=== PATIENT | male | born 1980 | race Caucasian/White ===

== ENCOUNTER 2019-01-20 15:01 | Inpatient (IN) | payer SELFPAY ==
[2019-01-20] MEDS ORDERED: Sodium Chloride 0.9% 1,000 ML IV ONE (15:11)
--- NOTE | 2019-01-20 15:17 | EDM.PDOC ---
ED HPI GENERAL MEDICAL PROBLEM - General Chief Complaint: Upper Extremity Injury/Pain Stated Complaint: HAND INFECTION Time Seen by Provider: 01/20/19 15:02 Source of Information: Reports: Patient History Limitations: Reports: No Limitations - History of Present Illness INITIAL COMMENTS - FREE TEXT/NARRATIVE: HISTORY AND PHYSICAL: History of present illness: Patient is a 38-year-old male presents to the ED today via EMS for concern of a left hand infection. Patient states he is homeless and was at the residential when the police had suggested he come in for medical treatment. Patient states he has a history of schizophrenia and his just recently and he is in the process of trying to get home back to [place] with his dog. Patient states over the past week he has been biting the nails on his left hand and even took a knife to scrape off some of the cuticle. Patient states she had noticed the infection starting to spread up his arm that he was more concerned with his 's passing that he was ignoring his symptoms. Patient states he's had some nausea but denies any other symptoms. Patient denies fever, chills, chest pain, shortness of breath, or cough. Denies headache, neck stiff ness, change in vision, syncope, or near syncope. Denies vomiting, abdominal pain, diarrhea, constipation, or dysuria. Has not noted any blood in urine or stool. Patient has been eating and drinking appropriately. Review of systems: As per history of present illness and below otherwise all systems reviewed and negative. Past medical history: As per history of present illness and as reviewed below otherwise noncontributory. Surgical history: As per history of present illness and as reviewed below otherwise noncontributory. Social history: See social history for further information Family history: As per history of present illness and as reviewed below otherwise noncontributory. Physical exam: General: Patient is alert, oriented, and in no acute distress. Patient laying comfortably on exam table. HEENT: Atraumatic, normocephalic, pupils equal and reactive bilaterally, negative for conjunctival pallor or scleral icterus, mucous membranes moist, TMs normal bilaterally, throat clear, neck supple, nontender, trachea midline. No drooling or trismus noted. No meningeal signs. No hot potato voice noted. Lungs: Clear to auscultation, breath sounds equal bilaterally, chest nontender. Heart: S1S2, regular rate and rhythm without overt murmur Abdomen: Thin, Soft, nondistended, nontender. Negative for masses or hepatosplenomegaly. Negative for costovertebral tenderness. Pelvis: Stable nontender. Genitourinary: Deferred. Rectal: Deferred. Skin: Intact, warm, dry. No lesions or rashes noted. Extremities: Negative for cords or calf pain. Neurovascular unremarkable. Left hand and forearm are erythematous/edematous and warm to touch from the distal fingertips to the mid radial shaft. Range of motion of the left wrist is limited due to edema and pain. Patient does have full range of motion of all digits. There is evidence of biting of the nails, more pronounced on digits 3 and 4 with surrounding erythema and crusting of the nail. I did use a surgical pen to outline the area of cellulitis. Radial pulses grossly intact and capillary refill less than 2 seconds. Neuro: Awake, alert, oriented. Cranial nerves II through XII unremarkable. Cerebellum unremarkable. Motor and sensory unremarkable throughout. Exam nonfocal. Notes: Dr. Spear directly involved in patient care. Dr. Coburn consulted on patient and will admit to inpatient. Voices understanding and is agreeable to plan of care. Denies any further questions or concerns at this time. Diagnostics: CBC, CMP, UA, Lactate, Blood Cultures x 2, Hand XR, Forearm XR Therapeutics: NS, Vancomycin, Clindamycin Impression: Left hand / forearm cellulitis Plan: 1. Admit to inpatient to Dr. Coburn. Definitive disposition and diagnosis as appropriate pending reevaluation and review of above. Left Hand Pain Score (Numeric/FACES): 5 - Related Data Allergies Allergy/AdvReac Type Severity Reaction Status Date / Time No Known Allergies Allergy Verified 01/20/19 15:10 Home Meds: Home Meds . [No Known Home Meds] 01/20/19 [History] Review of Systems - Review of Systems Review Of Systems: ROS reveals no pertinent complaints other than HPI. ED EXAM, GENERAL - Physical Exam Exam: See Below (see dictation) Course - Vital Signs Last Recorded V/S: Last Vital Signs Temp 36.6 C 01/20/19 15:10 Pulse 91 01/20/19 15:10 Resp 16 01/20/19 15:10 BP 144/109 H 01/20/19 15:10 Pulse Ox 98 01/20/19 15:10 - Orders/Labs/Meds Orders: Active Orders 24 hr Category Date Time Status Admission Status [Patient Status] [ADT] Stat ADT 01/20/19 16:20 Ordered CULTURE BLOOD [BC] Stat Lab 01/20/19 15:15 Received CULTURE BLOOD [BC] Stat Lab 01/20/19 15:22 Received UA RFX SHRUTHI AND CULT IF INDIC [URIN] Stat Lab 01/20/19 15:11 Ordered Sodium Chloride 0.9% [Normal Saline] 1,000 ml Med 01/20/19 15:11 Active IV STAT Vancomycin [Vancocin] 1 gm Med 01/20/19 15:31 Active Sodium Chloride 0.9% [Normal Saline] 250 ml IV ONETIME Blood Culture x2 Reflex Set [OM.PC] Stat Oth 01/20/19 15:10 Ordered Medication Orders Sodium Chloride (Normal Saline) 1,000 mls @ 125 mls/hr IV STAT ONE Stop: 01/20/19 23:10 Last Admin: 01/20/19 15:21 Dose: 125 mls/hr Vancomycin HCl 1 gm/ Sodium (Chloride) 250 mls @ 250 mls/hr IV ONETIME ONE Stop: 01/20/19 16:30 Last Admin: 01/20/19 15:44 Dose: 250 mls/hr Labs: Laboratory Tests 01/20/19 01/20/19 01/20/19 Range/Units 15:15 15:15 15:15 WBC 15.20 H (4.0-11.0) K/uL RBC 5.08 (4.50-5.90) M/uL Hgb 15.5 (13.0-17.0) g/dL Hct 43.7 (38.0-50.0) % MCV 86.0 (80.0-98.0) fL MCH 30.5 (27.0-32.0) pg MCHC 35.5 (31.0-37.0) g/dL RDW Std Deviation 39.9 (28.0-62.0) fl RDW Coeff of Rey 13 (11.0-15.0) % Plt Count 217 (150-400) K/uL MPV 9.00 (7.40-12.00) fL Neut % (Auto) 73.4 (48.0-80.0) % Lymph % (Auto) 19.3 (16.0-40.0) % [place] % (Auto) 5.4 (0.0-15.0) % Eos % (Auto) 1.4 (0.0-7.0) % Baso % (Auto) 0.5 (0.0-1.5) % Neut # (Auto) 11.2 H (1.4-5.7) K/uL Lymph # (Auto) 2.9 H (0.6-2.4) K/uL [place] # (Auto) 0.8 (0.0-0.8) K/uL Eos # (Auto) 0.2 (0.0-0.7) K/uL Baso # (Auto) 0.1 (0.0-0.1) K/uL Nucleated RBC % 0.0 /100WBC Nucleated RBCs # 0 K/uL Lactate 1.5 (0.20-2.00) mmol/L Sodium 134 L (136-148) mmol/L Potassium 3.0 L (3.5-5.1) mmol/L Chloride 101 (98-107) mmol/L Carbon Dioxide 26.5 (21.0-32.0) mmol/L BUN 8 (7.0-18.0) mg/dL Creatinine 0.9 (0.8-1.3) mg/dL Est Cr Clr Drug Dosing 107.10 mL/min Estimated GFR (MDRD) > 60.0 ml/min Glucose 168 H (74-106) mg/dL Calcium 8.6 (8.5-10.1) mg/dL Total Bilirubin 1.0 (0.2-1.0) mg/dL AST 30 (15-37) IU/L ALT 55 (14-63) IU/L Alkaline Phosphatase 97 (46-116) U/L Total Protein 7.5 (6.4-8.2) g/dL Albumin 3.6 (3.4-5.0) g/dL Globulin 3.9 (2.6-4.0) g/dL Albumin/Globulin Ratio 0.9 (0.9-1.6) Meds: Medications Generic Name Dose Route Start Last Admin Trade Name Freq PRN Reason Stop Dose Admin Sodium Chloride 1,000 mls @ 125 mls/hr 01/20/19 15:11 01/20/19 15:21 Normal Saline IV 01/20/19 23:10 125 mls/hr STAT ONE Administration Vancomycin HCl 1 gm/ Sodium 250 mls @ 250 mls/hr 01/20/19 15:31 01/20/19 15: 44 Chloride IV 01/20/19 16:30 250 mls/hr ONETIME ONE Administration Discontinued Medications Generic Name Dose Route Start Last Admin Trade Name Chioma PRN Reason Stop Dose Admin Clindamycin Phosphate 300 mg/ 50 mls @ 150 mls/hr 01/20/19 15:31 Premix IV 01/20/19 15:50 ONETIME ONE Sodium Chloride Confirm 01/20/19 15:38 01/20/19 15:44 Normal Saline Administered 01/20/19 15:39 Not Given Dose 250 mls @ as directed .ROUTE .STK-MED ONE Vancomycin HCl Confirm 01/20/19 15:36 01/20/19 15:44 Vancomycin Administered 01/20/19 15:37 Not Given Dose 1 gm .ROUTE .STK-MED ONE Departure - Departure Time of Disposition: 16:05 Disposition: Admitted As Inpatient 66 Clinical Impression: Cellulitis of forearm, left, Cellulitis of hand - Discharge Information - My Orders Last 24 Hours: My Active Orders 01/20/19 15:10 Blood Culture x2 Reflex Set [OM.PC] Stat 01/20/19 15:11 UA RFX SHRUTHI AND CULT IF INDIC [URIN] Stat Sodium Chloride 0.9% [Normal Saline] 1,000 ml IV STAT 01/20/19 15:15 CULTURE BLOOD [BC] Stat 01/20/19 15:22 CULTURE BLOOD [BC] Stat 01/20/19 15:31 Vancomycin [Vancocin] 1 gm Sodium Chloride 0.9% [Normal Saline] 250 ml IV ONETIME 01/20/19 16:20 Admission Status [Patient Status] [ADT] Stat - Assessment/Plan Last 24 Hours: My Active Orders 01/20/19 15:10 Blood Culture x2 Reflex Set [OM.PC] Stat 01/20/19 15:11 UA RFX SHRUTHI AND CULT IF INDIC [URIN] Stat Sodium Chloride 0.9% [Normal Saline] 1,000 ml IV STAT 01/20/19 15:15 CULTURE BLOOD [BC] Stat 01/20/19 15:22 CULTURE BLOOD [BC] Stat 01/20/19 15:31 Vancomycin [Vancocin] 1 gm Sodium Chloride 0.9% [Normal Saline] 250 ml IV ONETIME 01/20/19 16:20 Admission Status [Patient Status] [ADT] Stat
[2019-01-20] MEDS ORDERED: Clindamycin Phosphate in D5W 300 MG in Premix Bag 1 BAG IV ONE ×2 (15:31)
[2019-01-20] MEDS ORDERED: Vancomycin 1 GM SDV ONE (15:36)
[2019-01-20] MEDS ORDERED: Sodium Chloride 0.9% 250 ML ONE (15:38)
[2019-01-20 15:44] LABS: CHLORIDE,CL 101 mmol/L (98-107); SODIUM,NA 134 mmol/L (136-148)
--- NOTE | 2019-01-20 16:01 | CR ---
Indication: Redness and swelling Technique: Left forearm 2 views Comparison: None Findings: Bones: Alignment is normal. No fractures or bone lesions. Joint spaces: Unremarkable. Soft tissues: Unremarkable. No sign of edema or foreign body. Impression: Normal left forearm. Dictated by Jd Andrews MD @ Jan 20 2019 3:59PM Signed by Dr. Jd Andrews @ Jan 20 2019 3:59PM
--- NOTE | 2019-01-20 16:02 | CR ---
Indication: Redness and swelling. Technique: Left hand 3 views Comparison: None Findings: Bones: Alignment is normal. No fractures or bone lesions. Joint spaces: Unremarkable. Soft tissues: Dorsal soft tissue swelling is present. No focal abnormality or foreign body. Impression: Nonspecific dorsal soft tissue swelling. Remainder the exam is normal. Dictated by Jd Andrews MD @ Jan 20 2019 3:59PM Signed by Dr. Jd Andrews @ Jan 20 2019 4:00PM
[2019-01-20] MEDS ORDERED: oxyCODONE 5 MG Tab PO PRN (17:14)
[2019-01-20] MEDS ORDERED: Temazepam 15 MG Cap PO PRN (17:14)
--- NOTE | 2019-01-20 17:25 | PCM.HP ---
H&P History of Present Illness - General Date of Service: 01/20/19 Admit Problem/Dx: Admission Diagnosis/Problem Admission Diagnosis/Problem Cellulitis and abscess of arm Source of Information: Patient History Limitations: Reports: No Limitations - History of Present Illness Initial Comments - Free Text/Narative: The patient is a 38-year-old gentleman who has been in the area for 1 day. The patient was traveling from [place] to [place] and he had presented to the emergency department with a complaint of pain, swelling and redness of his left wrist. The patient has denied any fever or chills. He has no nausea or vomiting. The patient reports that he noticed redness and swelling of his left wrist starting approximately 2 days ago. The patient also reports that he has been having severe grief reaction as his has recently from colon cancer. Further, he says that he has nothing left for him and [place] and was returning home to family in [place]. The patient says that he also has been having problems with schizophrenia and has been off his medication for approximately one month. The patient has denied any hallucinations but he does talk to himself. The patient has denied any trauma. Onset of Symptoms: Reports: Gradual Duration of Symptoms: Reports: Day(s): Location: Reports: Upper Extremity, Left Quality: Reports: Ache, Throbbing Severity: Moderate Improves with: Reports: None Worsens with: Reports: None Associated Symptoms: Reports: No Other Symptoms Left Hand Pain Score (Numeric/FACES): 5 - Related Data Allergies/Adverse Reactions: Allergies Allergy/AdvReac Type Severity Reaction Status Date / Time No Known Allergies Allergy Verified 01/20/19 17:11 Home Medications: Home Meds . [No Known Home Meds] 01/20/19 [History] Past Medical History HEENT History: Reports: None Cardiovascular History: Reports: None Respiratory History: Reports: None Gastrointestinal History: Reports: None Genitourinary History: Reports: None Musculoskeletal History: Reports: None Neurological History: Reports: None Psychiatric History: Reports: Emotional Problems, Schizophrenia. Denies: Suicidal Ideation Endocrine/Metabolic History: Reports: None Hematologic History: Reports: None Immunologic History: Reports: None Oncologic (Cancer) History: Reports: None Dermatologic History: Reports: None - Infectious Disease History Infectious Disease History: Reports: Chicken Pox - Past Surgical History GI Surgical History: Reports: Appendectomy Musculoskeletal Surgical History: Reports: Other (See Below) Other Musculoskeletal Surgeries/Procedures:: R hand surgery Social & Family History - Family History Family Medical History: Noncontributory - Tobacco Use Smoking Status *Q: Current Every Day Smoker Years of Tobacco use: 20 Packs/Tins Daily: 1 - Caffeine Use Caffeine Use: Reports: Coffee - Recreational Drug Use Recreational Drug Use: Yes Recreational Drug Type: Reports: Marijuana/Hashish, Methamphetamine Recreational Drug Use Frequency: Monthly H&P Review of Systems - Review of Systems: Review Of Systems: See Below General: Reports: No Symptoms HEENT: Reports: No Symptoms Pulmonary: Reports: No Symptoms Cardiovascular: Reports: No Symptoms Gastrointestinal: Reports: No Symptoms Genitourinary: Reports: No Symptoms Musculoskeletal: Reports: Hand Pain Skin: Reports: No Symptoms Psychiatric: Reports: Depression, Anxiety. Denies: Suicidal Ideation, Homicidal Ideation Neurological: Reports: No Symptoms Hematologic/Lymphatic: Reports: No Symptoms Immunologic: Reports: No Symptoms Exam - Exam Exam: See Below - Vital Signs Vital Signs: Last Vital Signs Temp 37.2 C 01/20/19 17:09 Pulse 79 01/20/19 17:09 Resp 16 01/20/19 17:09 BP 120/84 01/20/19 17:09 Pulse Ox 100 01/20/19 17:09 Weight: 68.039 kg - Exam Quality Assessment: No: Supplemental Oxygen General: Alert, Oriented, Cooperative, Mild Distress HEENT: Conjunctiva Clear, EACs Clear, EOMI, Mucosa Moist & [place], Nares Patent, PERRLA Neck: Supple, Trachea Midline Lungs: Clear to Auscultation, Normal Respiratory Effort Cardiovascular: Regular Rate, Regular Rhythm GI/Abdominal Exam: Normal Bowel Sounds, Soft, No Distention. No: Guarding, Rigid, Rebound Back Exam: Normal Inspection, Full Range of Motion Extremities: No Pedal Edema, Joint Swelling (Left wrist), Arm Pain Skin: Warm, Dry, Intact, Other (Erythema, edema predominantly dorsal left hand around left wrist) Neurological: Cranial Nerves Intact Neuro Extensive - Mental Status: Alert, Oriented x3 Psychiatric: Alert, Anxious, Depressed, Agitated. No: Suicidal Ideation, Homicidal Ideation - Patient Data Lab Results Last 24 hrs: Laboratory Results - last 24 hr 01/20/19 01/20/19 01/20/19 Range/Units 15:15 15:15 15:15 WBC 15.20 H (4.0-11.0) K/uL RBC 5.08 (4.50-5.90) M/uL Hgb 15.5 (13.0-17.0) g/dL Hct 43.7 (38.0-50.0) % MCV 86.0 (80.0-98.0) fL MCH 30.5 (27.0-32.0) pg MCHC 35.5 (31.0-37.0) g/dL RDW Std Deviation 39.9 (28.0-62.0) fl RDW Coeff of Rey 13 (11.0-15.0) % Plt Count 217 (150-400) K/uL MPV 9.00 (7.40-12.00) fL Neut % (Auto) 73.4 (48.0-80.0) % Lymph % (Auto) 19.3 (16.0-40.0) % [place] % (Auto) 5.4 (0.0-15.0) % Eos % (Auto) 1.4 (0.0-7.0) % Baso % (Auto) 0.5 (0.0-1.5) % Neut # (Auto) 11.2 H (1.4-5.7) K/uL Lymph # (Auto) 2.9 H (0.6-2.4) K/uL [place] # (Auto) 0.8 (0.0-0.8) K/uL Eos # (Auto) 0.2 (0.0-0.7) K/uL Baso # (Auto) 0.1 (0.0-0.1) K/uL Nucleated RBC % 0.0 /100WBC Nucleated RBCs # 0 K/uL Lactate 1.5 (0.20-2.00) mmol/L Sodium 134 L (136-148) mmol/L Potassium 3.0 L (3.5-5.1) mmol/L Chloride 101 (98-107) mmol/L Carbon Dioxide 26.5 (21.0-32.0) mmol/L BUN 8 (7.0-18.0) mg/dL Creatinine 0.9 (0.8-1.3) mg/dL Est Cr Clr Drug Dosing 107.10 mL/min Estimated GFR (MDRD) > 60.0 ml/min Glucose 168 H (74-106) mg/dL Calcium 8.6 (8.5-10.1) mg/dL Total Bilirubin 1.0 (0.2-1.0) mg/dL AST 30 (15-37) IU/L ALT 55 (14-63) IU/L Alkaline Phosphatase 97 (46-116) U/L Total Protein 7.5 (6.4-8.2) g/dL Albumin 3.6 (3.4-5.0) g/dL Globulin 3.9 (2.6-4.0) g/dL Albumin/Globulin Ratio 0.9 (0.9-1.6) Result Diagrams: 01/20/19 15:15 01/20/19 15:15 - Problem List (1) Cellulitis of hand SNOMED Code(s): 90450721 ICD Code: L03.119 - CELLULITIS OF UNSPECIFIED PART OF LIMB Status: Acute Current Visit: No (2) Cellulitis of forearm, left SNOMED Code(s): 08510935 ICD Code: L03.114 - CELLULITIS OF LEFT UPPER LIMB Status: Acute Priority : High Current Visit: Yes (3) Grief SNOMED Code(s): 619245731 ICD Code: F43.21 - ADJUSTMENT DISORDER WITH DEPRESSED MOOD Status: Chronic Priority: Medium Current Visit: Yes (4) Polysubstance abuse SNOMED Code(s): 320509534 ICD Code: F19.10 - OTHER PSYCHOACTIVE SUBSTANCE ABUSE, UNCOMPLICATED Status : Chronic Priority: Medium Current Visit: Yes (5) Schizophrenia SNOMED Code(s): 71638131 ICD Code: F20.9 - SCHIZOPHRENIA, UNSPECIFIED Status: Chronic Priority: Medium Current Visit: Yes Qualifiers: Schizophrenia type: unspecified Qualified Code(s): F20.9 - Schizophrenia, unspecified Problem List Initiated/Reviewed/Updated: Yes Orders Last 24hrs: Active Orders 24 hr Category Date Time Status Admission Status [Patient Status] [ADT] Stat ADT 01/20/19 16:20 Active Oxygen Therapy [RC] PRN Care 01/20/19 17:12 Ordered Oxygen Therapy [RC] PRN Care 01/20/19 17:14 Ordered Up ad Shantelle [RC] ASDIRECTED Care 01/20/19 17:12 Ordered VTE/DVT Education [RC] PER UNIT ROUTINE Care 01/20/19 17:12 Ordered VTE/DVT Education [RC] PER UNIT ROUTINE Care 01/20/19 17:14 Ordered Vital Signs [RC] Q4H Care 01/20/19 17:12 Ordered Vital Signs [RC] Q4H Care 01/20/19 17:14 Ordered Regular Diet [DIET] Diet 01/21/19 Breakfast Ordered CBC WITH AUTO DIFF [HEME] AM Lab 01/21/19 05:11 Ordered COMPREHENSIVE METABOLIC PN,CMP [CHEM] AM Lab 01/21/19 05:11 Ordered CULTURE BLOOD [BC] Stat Lab 01/20/19 15:15 Received CULTURE BLOOD [BC] Stat Lab 01/20/19 15:22 Received UA RFX SHRUTHI AND CULT IF INDIC [URIN] Stat Lab 01/20/19 15:11 Ordered Acetaminophen [Tylenol] Med 01/20/19 17:14 Ordered 650 mg PO Q4H PRN Enoxaparin [Lovenox] Med 01/20/19 17:15 Ordered 30 mg SUBCUT Q24H Linezolid [Zyvox] 600 mg Med 01/20/19 21:00 Ordered Premix Bag 1 bag IV Q12H Sodium Chloride 0.9% @ 125 MLS/HR (1000ml) Med 01/20/19 17:15 Ordered Sodium Chloride 0.9% [Normal Saline] 1,000 ml IV ASDIRECTED Sodium Chloride 0.9% [Normal Saline] 1,000 ml Med 01/20/19 15:11 Active IV STAT Temazepam [Restoril] Med 01/20/19 17:14 Ordered 15 mg PO BEDTIME PRN oxyCODONE Med 01/20/19 17:14 Ordered 5 mg PO Q4H PRN Blood Culture x2 Reflex Set [OM.PC] Stat Oth 01/20/19 15:10 Ordered Resuscitation Status Routine Resus Stat 01/20/19 17:12 Ordered Medication Orders Sodium Chloride (Normal Saline) 1,000 mls @ 125 mls/hr IV STAT ONE Stop: 01/20/19 23:10 Last Admin: 01/20/19 15:21 Dose: 125 mls/hr Assessment/Plan Comment:: The patient is a 38-year-old gentleman who is admitted to observation secondary to mild cellulitis of his right hand and forearm. There is no evidence of abscess or gas formation on x-ray. The patient had been given a dose of clindamycin and vancomycin in the emergency department. I've elected to place patient on linezolid 600 mg IV every 12 hours. The patient is a tobacco user and as a result he has been given a nicotine patch. I had a discussion with the patient regarding his noncompliance with his schizophrenic medications and the patient has denied any homicidal or suicidal ideation and will start his medications if needed. He is experiencing grief due to his passing away less than a month ago and his current social situation as he is homeless. The patient has a a dog in [place] and is very concerned about the animal. I've ordered a CT scan of the patient's hand and wrist with contrast to help exclude osteomyelitis and/or septic arthritis. I explained to the patient that if this was the case that he would likely need to be transferred to tertiary care center. The patient's that he would refuse this. I've ordered repeat laboratory testings for the morning.
[2019-01-20] MEDS: Nicotine 14 MG/24 Hr Patch TRDERM SCH (17:53)
[2019-01-20] MEDS: Acetaminophen 325 MG Tab PO PRN (17:54)
[2019-01-20] MEDS: Enoxaparin 30 MG/0.3 ML Syringe SUBCUT SCH (17:55)
[2019-01-20] MEDS ORDERED: Iopamidol 755 MG/ML 500 ML Multipack Bottle IVPUSH ONE (19:53)
[2019-01-20] MEDS: Linezolid 600 MG in Premix Bag 1 BAG IV SCH (20:30)
--- NOTE | 2019-01-20 20:30 | CT ---
INDICATION: Cellulitis of the wrist. Evaluate for abscess. COMPARISON: Plain film same date. TECHNIQUE: 100 mL Isovue-370 IV contrast with 70 second delay imaging from distal humerus through metacarpals. FINDINGS: No organized fluid. No myositis finding. No soft tissue air. Hazy edema attenuation in the subcutaneous adipose dorsally through the forearm. Dorsal edema throughout the wrist and visualized proximal hand. No finding for tenosynovitis. No evidence for wrist or elbow joint effusion. No bone finding of significance. IMPRESSION: Nonspecific subcutaneous edema. No abscess. No joint effusion. No myositis. Please note that all CT scans at this facility use dose modulation, iterative reconstruction, and/or weight-based dosing when appropriate to reduce radiation dose to as low as reasonably achievable. Dictated by Javier Linton MD @ Jan 20 2019 8:28PM Signed by Dr. Javier Linton @ Jan 20 2019 8:28PM
[2019-01-20] MEDS: Sodium Chloride 0.9% 1,000 ML IV SCH (21:30)
[2019-01-21] MEDS: Sodium Chloride 0.9% 1,000 ML IV SCH ×3 (04:30→20:30)
[2019-01-21 06:41] LABS: CHLORIDE,CL 108 mmol/L (98-107); SODIUM,NA 137 mmol/L (136-148)
[2019-01-21] MEDS: Acetaminophen 325 MG Tab PO PRN ×2 (07:24→14:13)
--- NOTE | 2019-01-21 07:27 | PCM.PN ---
- General Info Date of Service: 01/21/19 Admission Dx/Problem (Free Text): Admission Diagnosis/Problem Admission Diagnosis/Problem Cellulitis and abscess of arm Subjective Update: The patient is a homeless 38-year-old gentleman who was admitted yesterday secondary to hand and forearm infection. The patient is moving from [place] to [place] and was brought into the emergency department by the police. The patient has been off his medications for schizophrenia and bipolar disorder. The patient is doing much better today. He says that he was sweating overnight. He has been tolerating his diet. The patient also says that he would like to be restarted on his risperidone and Zoloft. Functional Status: Reports: Pain Controlled - Review of Systems General: Reports: No Symptoms HEENT: Reports: No Symptoms Pulmonary: Reports: No Symptoms Cardiovascular: Reports: No Symptoms Gastrointestinal: Reports: No Symptoms Genitourinary: Reports: No Symptoms Musculoskeletal: Reports: No Symptoms Skin: Reports: No Symptoms Neurological: Reports: No Symptoms Psychiatric: Reports: No Symptoms - Patient Data Vitals - Most Recent: Last Vital Signs Temp 36.4 C 01/21/19 07:22 Pulse 98 01/21/19 07:22 Resp 14 01/21/19 07:22 BP 115/77 01/21/19 07:22 Pulse Ox 98 01/21/19 07:22 Weight - Most Recent: 68.039 kg I&O - Last 24 Hours: Intake & Output 01/20/19 01/21/19 01/21/19 22:59 06:59 14:59 Intake Total 300 1060 Output Total 900 Balance 300 160 Lab Results Last 24 Hours: Laboratory Results - last 24 hr 01/20/19 01/20/19 01/20/19 Range/Units 15:15 15:15 15:15 WBC 15.20 H (4.0-11.0) K/uL RBC 5.08 (4.50-5.90) M/uL Hgb 15.5 (13.0-17.0) g/dL Hct 43.7 (38.0-50.0) % MCV 86.0 (80.0-98.0) fL MCH 30.5 (27.0-32.0) pg MCHC 35.5 (31.0-37.0) g/dL RDW Std Deviation 39.9 (28.0-62.0) fl RDW Coeff of Rey 13 (11.0-15.0) % Plt Count 217 (150-400) K/uL MPV 9.00 (7.40-12.00) fL Neut % (Auto) 73.4 (48.0-80.0) % Lymph % (Auto) 19.3 (16.0-40.0) % Woodson % (Auto) 5.4 (0.0-15.0) % Eos % (Auto) 1.4 (0.0-7.0) % Baso % (Auto) 0.5 (0.0-1.5) % Neut # (Auto) 11.2 H (1.4-5.7) K/uL Lymph # (Auto) 2.9 H (0.6-2.4) K/uL Woodson # (Auto) 0.8 (0.0-0.8) K/uL Eos # (Auto) 0.2 (0.0-0.7) K/uL Baso # (Auto) 0.1 (0.0-0.1) K/uL Nucleated RBC % 0.0 /100WBC Nucleated RBCs # 0 K/uL Lactate 1.5 (0.20-2.00) mmol/L Sodium 134 L (136-148) mmol/L Potassium 3.0 L (3.5-5.1) mmol/L Chloride 101 (98-107) mmol/L Carbon Dioxide 26.5 (21.0-32.0) mmol/L BUN 8 (7.0-18.0) mg/dL Creatinine 0.9 (0.8-1.3) mg/dL Est Cr Clr Drug Dosing 107.10 mL/min Estimated GFR (MDRD) > 60.0 ml/min Glucose 168 H (74-106) mg/dL Calcium 8.6 (8.5-10.1) mg/dL Total Bilirubin 1.0 (0.2-1.0) mg/dL AST 30 (15-37) IU/L ALT 55 (14-63) IU/L Alkaline Phosphatase 97 (46-116) U/L Total Protein 7.5 (6.4-8.2) g/dL Albumin 3.6 (3.4-5.0) g/dL Globulin 3.9 (2.6-4.0) g/dL Albumin/Globulin Ratio 0.9 (0.9-1.6) Urine Color Urine Appearance Urine pH (5.0-8.0) Ur Specific Grand Chain (1.001-1.035) Urine Protein (NEGATIVE) mg/dL Urine Glucose (UA) (NEGATIVE) mg/dL Urine Ketones (NEGATIVE) mg/dL Urine Occult Blood (NEGATIVE) Urine Nitrite (NEGATIVE) Urine Bilirubin (NEGATIVE) Urine Urobilinogen (<2.0) EU/dL Ur Leukocyte Esterase (NEGATIVE) 01/21/19 01/21/19 01/21/19 Range/Units 05:02 05:55 05:55 WBC 10.33 (4.0-11.0) K/uL RBC 4.82 (4.50-5.90) M/uL Hgb 14.3 (13.0-17.0) g/dL Hct 42.0 (38.0-50.0) % MCV 87.1 (80.0-98.0) fL MCH 29.7 (27.0-32.0) pg MCHC 34.0 (31.0-37.0) g/dL RDW Std Deviation 41.4 (28.0-62.0) fl RDW Coeff of Rey 13 (11.0-15.0) % Plt Count 181 (150-400) K/uL MPV 9.40 (7.40-12.00) fL Neut % (Auto) 58.7 (48.0-80.0) % Lymph % (Auto) 29.5 (16.0-40.0) % Woodson % (Auto) 7.7 (0.0-15.0) % Eos % (Auto) 3.6 (0.0-7.0) % Baso % (Auto) 0.5 (0.0-1.5) % Neut # (Auto) 6.1 H (1.4-5.7) K/uL Lymph # (Auto) 3.1 H (0.6-2.4) K/uL Woodson # (Auto) 0.8 (0.0-0.8) K/uL Eos # (Auto) 0.4 (0.0-0.7) K/uL Baso # (Auto) 0.1 (0.0-0.1) K/uL Nucleated RBC % 0.0 /100WBC Nucleated RBCs # 0 K/uL Lactate (0.20-2.00) mmol/L Sodium 137 (136-148) mmol/L Potassium 3.9 (3.5-5.1) mmol/L Chloride 108 H (98-107) mmol/L Carbon Dioxide 25.3 (21.0-32.0) mmol/L BUN 8 (7.0-18.0) mg/dL Creatinine 0.8 (0.8-1.3) mg/dL Est Cr Clr Drug Dosing 120.49 mL/min Estimated GFR (MDRD) > 60.0 ml/min Glucose 101 (74-106) mg/dL Calcium 8.4 L (8.5-10.1) mg/dL Total Bilirubin 1.0 (0.2-1.0) mg/dL AST 25 (15-37) IU/L ALT 47 (14-63) IU/L Alkaline Phosphatase 71 (46-116) U/L Total Protein 6.0 L (6.4-8.2) g/dL Albumin 2.8 L (3.4-5.0) g/dL Globulin 3.2 (2.6-4.0) g/dL Albumin/Globulin Ratio 0.9 (0.9-1.6) Urine Color YELLOW Urine Appearance CLEAR Urine pH 7.0 (5.0-8.0) Ur Specific Grand Chain 1.010 (1.001-1.035) Urine Protein NEGATIVE (NEGATIVE) mg/dL Urine Glucose (UA) NEGATIVE (NEGATIVE) mg/dL Urine Ketones NEGATIVE (NEGATIVE) mg/dL Urine Occult Blood NEGATIVE (NEGATIVE) Urine Nitrite NEGATIVE (NEGATIVE) Urine Bilirubin NEGATIVE (NEGATIVE) Urine Urobilinogen 0.2 (<2.0) EU/dL Ur Leukocyte Esterase NEGATIVE (NEGATIVE) Med Orders - Current: Current Medications Acetaminophen (Tylenol) 650 mg PO Q4H PRN PRN Reason: Pain (Mild 1-3)/fever Last Admin: 01/21/19 07:24 Dose: 650 mg Enoxaparin Sodium (Lovenox) 30 mg SUBCUT Q24H [facility] Last Admin: 01/20/19 17:55 Dose: 30 mg Linezolid 600 mg/ Premix 300 mls @ 300 mls/hr IV Q12H [facility] Last Admin: 01/20/19 20:30 Dose: 300 mls/hr Sodium Chloride (Normal Saline) 1,000 mls @ 125 mls/hr IV ASDIRECTED [facility] Last Admin: 01/21/19 04:30 Dose: 125 mls/hr Nicotine (Habitrol) 14 mg TRDERM DAILY [facility] Last Admin: 01/20/19 17:53 Dose: 14 mg Oxycodone HCl (Oxycodone) 5 mg PO Q4H PRN PRN Reason: Pain (moderate 4-6) Temazepam (Restoril) 15 mg PO BEDTIME PRN PRN Reason: Sleep Discontinued Medications Sodium Chloride (Normal Saline) 1,000 mls @ 125 mls/hr IV STAT ONE Stop: 01/20/19 23:10 Last Admin: 01/20/19 15:21 Dose: 125 mls/hr Vancomycin HCl 1 gm/ Sodium (Chloride) 250 mls @ 250 mls/hr IV ONETIME ONE Stop: 01/20/19 16:30 Last Admin: 01/20/19 15:44 Dose: 250 mls/hr Clindamycin Phosphate 300 mg/ (Premix) 50 mls @ 150 mls/hr IV ONETIME ONE Stop: 01/20/19 15:50 Last Admin: 01/20/19 16:49 Dose: 150 mls/hr Sodium Chloride (Normal Saline) Confirm Administered Dose 250 mls @ as directed .ROUTE .STK-MED ONE Stop: 01/20/19 15:39 Last Admin: 01/20/19 15:44 Dose: Not Given Iopamidol (Isovue Multipack-370 (76%)) 100 ml IVPUSH ONETIME ONE Stop: 01/20/19 19:54 Last Admin: 01/20/19 19:54 Dose: 100 ml Vancomycin HCl (Vancomycin) Confirm Administered Dose 1 gm .ROUTE .STK-MED ONE Stop: 01/20/19 15:37 Last Admin: 01/20/19 15:44 Dose: Not Given - Exam Quality Assessment: No: Supplemental Oxygen General: Alert, Oriented, Cooperative, No Acute Distress HEENT: Pupils Equal, Pupils Reactive, EOMI. No: Mucous Membr. Moist/[place] (Dry) Neck: Supple, Trachea Midline Lungs: Clear to Auscultation, Normal Respiratory Effort Cardiovascular: Regular Rate, Regular Rhythm GI/Abdominal Exam: Normal Bowel Sounds, Soft, Non-Tender, No Distention Back Exam: Normal Inspection Extremities: No: Normal Inspection (Decreased range of motion left wrist. Erythema decreased.) Skin: Warm, Dry, Intact Neurological: No New Focal Deficit Psy/Mental Status: Alert, Normal Affect, Normal Mood - Problem List & Annotations (1) Cellulitis of hand SNOMED Code(s): 16175515 Code(s): L03.119 - CELLULITIS OF UNSPECIFIED PART OF LIMB Status: Acute Current Visit: No (2) Cellulitis of forearm, left SNOMED Code(s): 39301747 Code(s): L03.114 - CELLULITIS OF LEFT UPPER LIMB Status: Acute Priority: High Current Visit: Yes (3) Grief SNOMED Code(s): 784568175 Code(s): F43.21 - ADJUSTMENT DISORDER WITH DEPRESSED MOOD Status: Chronic Priority: Medium Current Visit: Yes (4) Polysubstance abuse SNOMED Code(s): 282312576 Code(s): F19.10 - OTHER PSYCHOACTIVE SUBSTANCE ABUSE, UNCOMPLICATED Status : Chronic Priority: Medium Current Visit: Yes (5) Schizophrenia SNOMED Code(s): 73789602 Code(s): F20.9 - SCHIZOPHRENIA, UNSPECIFIED Status: Chronic Priority: Medium Current Visit: Yes Qualifiers: Schizophrenia type: unspecified Qualified Code(s): F20.9 - Schizophrenia, unspecified - Problem List Review Problem List Initiated/Reviewed/Updated: Yes - My Orders Last 24 Hours: My Active Orders 01/20/19 17:12 Up ad Shantelle [RC] ASDIRECTED Resuscitation Status Routine 01/20/19 17:14 Oxygen Therapy [RC] PRN VTE/DVT Education [RC] PER UNIT ROUTINE Vital Signs [RC] Q4H Acetaminophen [Tylenol] 650 mg PO Q4H PRN Temazepam [Restoril] 15 mg PO BEDTIME PRN oxyCODONE 5 mg PO Q4H PRN 01/20/19 17:15 Enoxaparin [Lovenox] 30 mg SUBCUT Q24H Sodium Chloride 0.9% [Normal Saline] 1,000 ml IV ASDIRECTED 01/20/19 17:30 Nicotine [Habitrol] 14 mg TRDERM DAILY 01/20/19 17:43 May Shower [RC] ASDIRECTED 01/20/19 21:00 Linezolid [Zyvox] 600 mg Premix Bag 1 bag IV Q12H 01/20/19 Dinner Regular Diet [DIET] - Plan Plan:: The patient is a 38-year-old gentleman who is doing much better today. He has been tolerating linezolid. CT scan with contrast did not show any evidence of abscess or deeper hand infection. The patient will be continued on linezolid 600 mg IV every 12 hours. He also has been given a nicotine patch. The patient will be kept on DVT prophylaxis. I've ordered repeat laboratory studies. The patient be started on his Risperdal and Zoloft at lowest doses. He's been encouraged to ambulate.
[2019-01-21] MEDS: Nicotine 14 MG/24 Hr Patch TRDERM SCH (08:18)
[2019-01-21] MEDS: Linezolid 600 MG in Premix Bag 1 BAG IV SCH ×2 (08:21→20:45)
[2019-01-21] MEDS: Enoxaparin 30 MG/0.3 ML Syringe SUBCUT SCH (17:01)
[2019-01-21] MEDS: risperiDONE 1 MG Tab PO SCH (20:50)
[2019-01-21] MEDS: Sertraline 25 MG Tab PO SCH (20:50)
[2019-01-22] MEDS: Sodium Chloride 0.9% 1,000 ML IV SCH ×3 (04:00→19:45)
[2019-01-22] MEDS: Acetaminophen 325 MG Tab PO PRN ×3 (07:12→19:55)
[2019-01-22] MEDS: Linezolid 600 MG in Premix Bag 1 BAG IV SCH ×2 (08:17→20:30)
[2019-01-22] MEDS: Nicotine 14 MG/24 Hr Patch TRDERM SCH (08:19)
--- NOTE | 2019-01-22 09:10 | PCM.PN ---
- General Info Date of Service: 01/22/19 Admission Dx/Problem (Free Text): Admission Diagnosis/Problem Admission Diagnosis/Problem Cellulitis and abscess of arm Subjective Update: The patient is a 38-year-old gentleman who had been admitted for IV antibiotic secondary to cellulitis of his left forearm. The patient says today that he is doing better. The patient also says that the pain is lessened. The patient says that he has been tolerating his diet. He has no other complaints presently. This patient was started on his psychiatric medications he has been sleeping well. Functional Status: Reports: Pain Controlled - Review of Systems General: Reports: No Symptoms HEENT: Reports: No Symptoms Pulmonary: Reports: No Symptoms Cardiovascular: Reports: No Symptoms Gastrointestinal: Reports: No Symptoms Genitourinary: Reports: No Symptoms Musculoskeletal: Reports: No Symptoms Skin: Reports: Other (Cellulitis left arm) Neurological: Reports: No Symptoms Psychiatric: Reports: No Symptoms - Patient Data Vitals - Most Recent: Last Vital Signs Temp 36.7 C 01/22/19 07:49 Pulse 68 01/22/19 07:49 Resp 16 01/22/19 07:49 BP 128/72 01/22/19 07:49 Pulse Ox 99 01/22/19 07:49 Weight - Most Recent: 68.039 kg I&O - Last 24 Hours: Intake & Output 01/21/19 01/22/19 01/22/19 22:59 06:59 14:59 Intake Total 2650 1488 Output Total 900 900 Balance 1750 588 Rodríguez Results Last 24 Hours: Microbiology 01/20/19 15:22 Aerobic Blood Culture - Preliminary Blood - Venous - Lab Draw NO GROWTH AFTER 1 DAY Anaerobic Blood Culture - Preliminary NO GROWTH AFTER 1 DAY 01/20/19 15:15 Aerobic Blood Culture - Preliminary Blood - Venous NO GROWTH AFTER 1 DAY Anaerobic Blood Culture - Preliminary NO GROWTH AFTER 1 DAY Med Orders - Current: Current Medications Acetaminophen (Tylenol) 650 mg PO Q4H PRN PRN Reason: Pain (Mild 1-3)/fever Last Admin: 01/22/19 07:12 Dose: 650 mg Enoxaparin Sodium (Lovenox) 30 mg SUBCUT Q24H [facility] Last Admin: 01/21/19 17:01 Dose: 30 mg Linezolid 600 mg/ Premix 300 mls @ 300 mls/hr IV Q12H [facility] Last Admin: 01/22/19 08:17 Dose: 300 mls/hr Sodium Chloride (Normal Saline) 1,000 mls @ 125 mls/hr IV ASDIRECTED [facility] Last Admin: 01/22/19 04:00 Dose: 125 mls/hr Nicotine (Habitrol) 14 mg TRDERM DAILY [facility] Last Admin: 01/22/19 08:19 Dose: 14 mg Oxycodone HCl (Oxycodone) 5 mg PO Q4H PRN PRN Reason: Pain (moderate 4-6) Risperidone (Risperidal) 0.5 mg PO BEDTIME [facility] Last Admin: 01/21/19 20:50 Dose: 0.5 mg Sertraline HCl (Zoloft) 25 mg PO BEDTIME [facility] Last Admin: 01/21/19 20:50 Dose: 25 mg Temazepam (Restoril) 15 mg PO BEDTIME PRN PRN Reason: Sleep Discontinued Medications Sodium Chloride (Normal Saline) 1,000 mls @ 125 mls/hr IV STAT ONE Stop: 01/20/19 23:10 Last Admin: 01/20/19 15:21 Dose: 125 mls/hr Vancomycin HCl 1 gm/ Sodium (Chloride) 250 mls @ 250 mls/hr IV ONETIME ONE Stop: 01/20/19 16:30 Last Admin: 01/20/19 15:44 Dose: 250 mls/hr Clindamycin Phosphate 300 mg/ (Premix) 50 mls @ 150 mls/hr IV ONETIME ONE Stop: 01/20/19 15:50 Last Admin: 01/20/19 16:49 Dose: 150 mls/hr Sodium Chloride (Normal Saline) Confirm Administered Dose 250 mls @ as directed .ROUTE .STK-MED ONE Stop: 01/20/19 15:39 Last Admin: 01/20/19 15:44 Dose: Not Given Iopamidol (Isovue Multipack-370 (76%)) 100 ml IVPUSH ONETIME ONE Stop: 01/20/19 19:54 Last Admin: 01/20/19 19:54 Dose: 100 ml Vancomycin HCl (Vancomycin) Confirm Administered Dose 1 gm .ROUTE .STK-MED ONE Stop: 01/20/19 15:37 Last Admin: 01/20/19 15:44 Dose: Not Given - Exam Quality Assessment: No: Supplemental Oxygen General: Alert, Oriented, Cooperative, No Acute Distress HEENT: Pupils Equal, Pupils Reactive, EOMI Neck: Supple, Trachea Midline Lungs: Clear to Auscultation, Normal Respiratory Effort Cardiovascular: Regular Rate, Regular Rhythm GI/Abdominal Exam: Normal Bowel Sounds, Soft, No Distention Back Exam: Normal Inspection Extremities: Normal Inspection, Normal Range of Motion, No Pedal Edema Skin: Warm, Dry, Intact, Other (Area of cellulitis markedly decreased, less erythema, area of cellulitis predominantly dorsum left wrist) Neurological: No New Focal Deficit Psy/Mental Status: Alert, Normal Affect, Normal Mood - Problem List & Annotations (1) Cellulitis of hand SNOMED Code(s): 15656952 Code(s): L03.119 - CELLULITIS OF UNSPECIFIED PART OF LIMB Status: Acute Priority: High Current Visit: Yes (2) Cellulitis of forearm, left SNOMED Code(s): 19578204 Code(s): L03.114 - CELLULITIS OF LEFT UPPER LIMB Status: Acute Priority: High Current Visit: Yes (3) Grief SNOMED Code(s): 443387782 Code(s): F43.21 - ADJUSTMENT DISORDER WITH DEPRESSED MOOD Status: Chronic Priority: Medium Current Visit: Yes (4) Polysubstance abuse SNOMED Code(s): 921102058 Code(s): F19.10 - OTHER PSYCHOACTIVE SUBSTANCE ABUSE, UNCOMPLICATED Status : Chronic Priority: Medium Current Visit: Yes (5) Schizophrenia SNOMED Code(s): 85376941 Code(s): F20.9 - SCHIZOPHRENIA, UNSPECIFIED Status: Chronic Priority: Medium Current Visit: Yes Qualifiers: Schizophrenia type: unspecified Qualified Code(s): F20.9 - Schizophrenia, unspecified - Problem List Review Problem List Initiated/Reviewed/Updated: Yes - My Orders Last 24 Hours: My Active Orders 01/21/19 21:00 Sertraline [Zoloft] 25 mg PO BEDTIME risperiDONE [RisperiDAL] 0.5 mg PO BEDTIME - Plan Plan:: The patient is a 38-year-old gentleman who has been tolerating linezolid. He has had some significant improvement. We'll continue on his linezolid 600 mg IV every 12 hours. The patient has been encouraged to ambulate. The patient will be continued on his Risperdal and Zoloft for now. He also be kept on DVT prophylaxis. I've ordered repeat laboratory studies for the morning. The patient should be appropriate for discharge tomorrow with outpatient oral antibiotics. The patient has said that he is still in process of going to [place] to be with family. Further, the patient says that he has Medicare and obtaining medication should not be a problem.
[2019-01-22] MEDS: Enoxaparin 30 MG/0.3 ML Syringe SUBCUT SCH (18:19)
[2019-01-22] MEDS: Sertraline 25 MG Tab PO SCH (20:38)
[2019-01-22] MEDS: risperiDONE 1 MG Tab PO SCH (20:38)
[2019-01-23] MEDS: Sodium Chloride 0.9% 1,000 ML IV SCH (04:00)
[2019-01-23 06:20] LABS: CHLORIDE,CL 110 mmol/L (98-107); SODIUM,NA 142 mmol/L (136-148)
[2019-01-23] MEDS: Acetaminophen 325 MG Tab PO PRN (06:55)
--- NOTE | 2019-01-23 08:10 | PCM.DCSUM1 ---
<Erich Garza - Last Filed: 01/23/19 08:36> Discharge Summary - Hospital Course Free Text/Narrative:: 38 y/o male with history of schizophrenia presented to the ER with swollen, red left hand. Admitted for left hand cellulitis and started on linezolid. In addition, he was restarted on his home medications for schizophrenia since he states he has not been taking them in few months. His hand edema and cellulitis improved significantly with only a small area of cellulitis on his left wrist area. He was discharged home on Bactrim and Keflex for 10 days. Provided refills on his Sertraline and Risperidone. - Discharge Data Discharge Date: 01/23/19 Discharge Disposition: Home, Self-Care 01 Condition: Good - Patient Instructions Diet: Regular Diet as Tolerated Activity: As Tolerated Notify Provider of: Fever, Increased Pain, Drainage, Nausea and/or Vomiting - Discharge Plan *PRESCRIPTION DRUG MONITORING PROGRAM REVIEWED*: Not Applicable *COPY OF PRESCRIPTION DRUG MONITORING REPORT IN PATIENT DRE: Not Applicable Prescriptions/Med Rec: Cephalexin [Keflex] 500 mg PO QID 10 Days #40 capsule risperiDONE [RisperiDAL] 1 mg PO BEDTIME 30 Days #30 tablet Sertraline [Zoloft] 50 mg PO BEDTIME 30 Days #60 tablet Sulfamethoxazole/Trimethoprim [Bactrim Ds Tablet] 1 each PO BID 10 Days #20 tablet Home Medications: Home Meds Cephalexin [Keflex] 500 mg PO QID 10 Days #40 capsule 01/23/19 [Rx] Sertraline [Zoloft] 50 mg PO BEDTIME 30 Days #60 tablet 01/23/19 [Rx] Sulfamethoxazole/Trimethoprim [Bactrim Ds Tablet] 1 each PO BID 10 Days #20 tablet 01/23/19 [Rx] risperiDONE [RisperiDAL] 1 mg PO BEDTIME 30 Days #30 tablet 01/23/19 [Rx] Patient Handouts: Risperidone orally-disintegrating tablets, Substance Use Disorder, Cellulitis, Adult, [id number]-pd-[id number], Coping With Loss, Adult, Cephalexin tablets or capsules, Sertraline tablets, Sulfamethoxazole; Trimethoprim, SMX- TMP tablets - Discharge Summary/Plan Comment DC Time >30 min.: No - Patient Data Vitals - Most Recent: Last Vital Signs Temp 36.1 C 01/23/19 07:37 Pulse 69 01/23/19 07:37 Resp 16 01/23/19 07:37 BP 123/77 01/23/19 07:37 Pulse Ox 98 01/23/19 07:37 Weight - Most Recent: 68.039 kg I&O - Last 24 hours: Intake & Output 01/22/19 01/23/19 01/23/19 22:59 06:59 14:59 Intake Total 2116 1240 Output Total 1500 Balance 2116 -260 Lab Results - Last 24 hrs: Laboratory Results - last 24 hr 01/23/19 01/23/19 Range/Units 05:37 05:37 WBC 7.26 (4.0-11.0) K/uL RBC 4.83 (4.50-5.90) M/uL Hgb 14.3 (13.0-17.0) g/dL Hct 42.0 (38.0-50.0) % MCV 87.0 (80.0-98.0) fL MCH 29.6 (27.0-32.0) pg MCHC 34.0 (31.0-37.0) g/dL RDW Std Deviation 40.8 (28.0-62.0) fl RDW Coeff of Rey 13 (11.0-15.0) % Plt Count 203 (150-400) K/uL MPV 9.00 (7.40-12.00) fL Neut % (Auto) 56.2 (48.0-80.0) % Lymph % (Auto) 31.4 (16.0-40.0) % Stevens % (Auto) 6.3 (0.0-15.0) % Eos % (Auto) 5.1 (0.0-7.0) % Baso % (Auto) 1.0 (0.0-1.5) % Neut # (Auto) 4.1 (1.4-5.7) K/uL Lymph # (Auto) 2.3 (0.6-2.4) K/uL Stevens # (Auto) 0.5 (0.0-0.8) K/uL Eos # (Auto) 0.4 (0.0-0.7) K/uL Baso # (Auto) 0.1 (0.0-0.1) K/uL Nucleated RBC % 0.0 /100WBC Nucleated RBCs # 0 K/uL Sodium 142 (136-148) mmol/L Potassium 4.5 (3.5-5.1) mmol/L Chloride 110 H (98-107) mmol/L Carbon Dioxide 24.6 (21.0-32.0) mmol/L BUN 10 (7.0-18.0) mg/dL Creatinine 0.8 (0.8-1.3) mg/dL Est Cr Clr Drug Dosing 120.49 mL/min Estimated GFR (MDRD) > 60.0 ml/min Glucose 95 (74-106) mg/dL Calcium 7.9 L (8.5-10.1) mg/dL SHRUTHI Results - Last 24 hrs: Microbiology 01/20/19 15:22 Aerobic Blood Culture - Preliminary Blood - Venous - Lab Draw NO GROWTH AFTER 2 DAYS Anaerobic Blood Culture - Preliminary NO GROWTH AFTER 2 DAYS 01/20/19 15:15 Aerobic Blood Culture - Preliminary Blood - Venous NO GROWTH AFTER 2 DAYS Anaerobic Blood Culture - Preliminary NO GROWTH AFTER 2 DAYS Med Orders - Current: Current Medications Acetaminophen (Tylenol) 650 mg PO Q4H PRN PRN Reason: Pain (Mild 1-3)/fever Last Admin: 01/23/19 06:55 Dose: 650 mg Enoxaparin Sodium (Lovenox) 30 mg SUBCUT Q24H [facility] Last Admin: 01/22/19 18:19 Dose: 30 mg Linezolid 600 mg/ Premix 300 mls @ 300 mls/hr IV Q12H [facility] Last Admin: 01/22/19 20:30 Dose: 300 mls/hr Sodium Chloride (Normal Saline) 1,000 mls @ 125 mls/hr IV ASDIRECTED [facility] Last Admin: 01/23/19 04:00 Dose: 125 mls/hr Nicotine (Habitrol) 14 mg TRDERM DAILY [facility] Last Admin: 01/22/19 08:19 Dose: 14 mg Oxycodone HCl (Oxycodone) 5 mg PO Q4H PRN PRN Reason: Pain (moderate 4-6) Risperidone (Risperidal) 0.5 mg PO BEDTIME [facility] Last Admin: 01/22/19 20:38 Dose: 0.5 mg Sertraline HCl (Zoloft) 25 mg PO BEDTIME [facility] Last Admin: 01/22/19 20:38 Dose: 25 mg Temazepam (Restoril) 15 mg PO BEDTIME PRN PRN Reason: Sleep Discontinued Medications Sodium Chloride (Normal Saline) 1,000 mls @ 125 mls/hr IV STAT ONE Stop: 01/20/19 23:10 Last Admin: 01/20/19 15:21 Dose: 125 mls/hr Vancomycin HCl 1 gm/ Sodium (Chloride) 250 mls @ 250 mls/hr IV ONETIME ONE Stop: 01/20/19 16:30 Last Admin: 01/20/19 15:44 Dose: 250 mls/hr Clindamycin Phosphate 300 mg/ (Premix) 50 mls @ 150 mls/hr IV ONETIME ONE Stop: 01/20/19 15:50 Last Admin: 01/20/19 16:49 Dose: 150 mls/hr Sodium Chloride (Normal Saline) Confirm Administered Dose 250 mls @ as directed .ROUTE .STK-MED ONE Stop: 01/20/19 15:39 Last Admin: 01/20/19 15:44 Dose: Not Given Iopamidol (Isovue Multipack-370 (76%)) 100 ml IVPUSH ONETIME ONE Stop: 01/20/19 19:54 Last Admin: 01/20/19 19:54 Dose: 100 ml Vancomycin HCl (Vancomycin) Confirm Administered Dose 1 gm .ROUTE .STK-MED ONE Stop: 01/20/19 15:37 Last Admin: 01/20/19 15:44 Dose: Not Given <Mckinley Coburn - Last Filed: 01/23/19 10:06> Discharge Summary - Hospital Course HPI Initial Comments: I have seen and examined to patient independently of medical technologist generalist, Erich South MD. I have discussed the case for care of this patient with him. I have reviewed and approve of the plan of care as outlined by medical technologist generalist. Please see orders. 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 MOOD Status: Chronic Priority: Medium (4) Polysubstance abuse SNOMED Code(s): 216371646 ICD Code: F19.10 - OTHER PSYCHOACTIVE SUBSTANCE ABUSE, UNCOMPLICATED Status : Chronic Priority: Medium (5) Schizophrenia SNOMED Code(s): 40173251 ICD Code: F20.9 - SCHIZOPHRENIA, UNSPECIFIED Status: Chronic Priority: Medium Qualifiers: Schizophrenia type: unspecified Qualified Code(s): F20.9 - Schizophrenia, unspecified - Patient Data Vitals - Most Recent: Last Vital Signs Temp 36.1 C 01/23/19 07:37 Pulse 69 01/23/19 07:37 Resp 16 01/23/19 07:37 BP 123/77 01/23/19 07:37 Pulse Ox 98 01/23/19 07:37 I&O - Last 24 hours: Intake & Output 01/22/19 01/23/19 01/23/19 22:59 06:59 14:59 Intake Total 2119 1240 811 Output Total 4092 900 Balance 1441 -391 -02 Lab Results - Last 24 hrs: Laboratory Results - last 24 hr 01/23/19 01/23/19 Range/Units 05:37 05:37 WBC 7.26 (4.0-11.0) K/uL RBC 4.83 (4.50-5.90) M/uL Hgb 14.3 (13.0-17.0) g/dL Hct 42.0 (38.0-50.0) % MCV 87.0 (80.0-98.0) fL MCH 29.6 (27.0-32.0) pg MCHC 34.0 (31.0-37.0) g/dL RDW Std Deviation 40.8 (28.0-62.0) fl RDW Coeff of Rey 13 (11.0-15.0) % Plt Count 203 (150-400) K/uL MPV 9.00 (7.40-12.00) fL Neut % (Auto) 56.2 (48.0-80.0) % Lymph % (Auto) 31.4 (16.0-40.0) % Stevens % (Auto) 6.3 (0.0-15.0) % Eos % (Auto) 5.1 (0.0-7.0) % Baso % (Auto) 1.0 (0.0-1.5) % Neut # (Auto) 4.1 (1.4-5.7) K/uL Lymph # (Auto) 2.3 (0.6-2.4) K/uL Stevens # (Auto) 0.5 (0.0-0.8) K/uL Eos # (Auto) 0.4 (0.0-0.7) K/uL Baso # (Auto) 0.1 (0.0-0.1) K/uL Nucleated RBC % 0.0 /100WBC Nucleated RBCs # 0 K/uL Sodium 142 (136-148) mmol/L Potassium 4.5 (3.5-5.1) mmol/L Chloride 110 H (98-107) mmol/L Carbon Dioxide 24.6 (21.0-32.0) mmol/L BUN 10 (7.0-18.0) mg/dL Creatinine 0.8 (0.8-1.3) mg/dL Est Cr Clr Drug Dosing 120.49 mL/min Estimated GFR (MDRD) > 60.0 ml/min Glucose 95 (74-106) mg/dL Calcium 7.9 L (8.5-10.1) mg/dL SHRUTHI Results - Last 24 hrs: Microbiology 01/20/19 15:22 Aerobic Blood Culture - Preliminary Blood - Venous - Lab Draw NO GROWTH AFTER 2 DAYS Anaerobic Blood Culture - Preliminary NO GROWTH AFTER 2 DAYS 01/20/19 15:15 Aerobic Blood Culture - Preliminary Blood - Venous NO GROWTH AFTER 2 DAYS Anaerobic Blood Culture - Preliminary NO GROWTH AFTER 2 DAYS Med Orders - Current: Current Medications Discontinued Medications Acetaminophen (Tylenol) 650 mg PO Q4H PRN PRN Reason: Pain (Mild 1-3)/fever Last Admin: 01/23/19 06:55 Dose: 650 mg Enoxaparin Sodium (Lovenox) 30 mg SUBCUT Q24H [facility] Last Admin: 01/22/19 18:19 Dose: 30 mg Sodium Chloride (Normal Saline) 1,000 mls @ 125 mls/hr IV STAT ONE Stop: 01/20/19 23:10 Last Admin: 01/20/19 15:21 Dose: 125 mls/hr Vancomycin HCl 1 gm/ Sodium (Chloride) 250 mls @ 250 mls/hr IV ONETIME ONE Stop: 01/20/19 16:30 Last Admin: 01/20/19 15:44 Dose: 250 mls/hr Clindamycin Phosphate 300 mg/ (Premix) 50 mls @ 150 mls/hr IV ONETIME ONE Stop: 01/20/19 15:50 Last Admin: 01/20/19 16:49 Dose: 150 mls/hr Sodium Chloride (Normal Saline) Confirm Administered Dose 250 mls @ as directed .ROUTE .STK-MED ONE Stop: 01/20/19 15:39 Last Admin: 01/20/19 15:44 Dose: Not Given Linezolid 600 mg/ Premix 300 mls @ 300 mls/hr IV Q12H [facility] Last Admin: 01/22/19 20:30 Dose: 300 mls/hr Sodium Chloride (Normal Saline) 1,000 mls @ 125 mls/hr IV ASDIRECTED [facility] Last Admin: 01/23/19 04:00 Dose: 125 mls/hr Iopamidol (Isovue Multipack-370 (76%)) 100 ml IVPUSH ONETIME ONE Stop: 01/20/19 19:54 Last Admin: 01/20/19 19:54 Dose: 100 ml Nicotine (Habitrol) 14 mg TRDERM DAILY [facility] Last Admin: 01/22/19 08:19 Dose: 14 mg Oxycodone HCl (Oxycodone) 5 mg PO Q4H PRN PRN Reason: Pain (moderate 4-6) Risperidone (Risperidal) 0.5 mg PO BEDTIME [facility] Last Admin: 01/22/19 20:38 Dose: 0.5 mg Sertraline HCl (Zoloft) 25 mg PO BEDTIME [facility] Last Admin: 01/22/19 20:38 Dose: 25 mg Temazepam (Restoril) 15 mg PO BEDTIME PRN PRN Reason: Sleep Vancomycin HCl (Vancomycin) Confirm Administered Dose 1 gm .ROUTE .STK-MED ONE Stop: 01/20/19 15:37 Last Admin: 01/20/19 15:44 Dose: Not Given
== END 2019-01-23 09:20 | disposition home or self-care (01) | DRG 603 ==
LOC: MW.ED 15:01 → MW.MS 17:07
PROVIDERS: ADMIT Internal Medicine; ATTEND Internal Medicine
DX: L03.114 Cellulitis of left upper limb (principal); F20.9 Schizophrenia, unspecified; F43.21 Adjustment disorder with depressed mood; F19.10 Other psychoactive substance abuse, uncomplicated; F17.210 Nicotine dependence, cigarettes, uncomplicated; Z90.49 Acquired absence of other specified parts of digestive tract
CPT/HCPCS: 36415; 73090-26-LT; 73090-LT; 73130-26-LT; 73130-LT; 73201-26-LT; 73201-LT; 80048; 80053; 81003; 83605; 85025; 87040; 96365; 96367; 99284; 99285-25; A4217; A9270-GY; J1650; J2020; J3370; J3490; J7040; J7050; Q9967